=== PATIENT | female | born 1995 | race Caucasian/White ===

== ENCOUNTER 2017-03-23 07:36 | Emergency (ER) | payer SELFPAY ==
[~2017-03-23 07:36] MED LIST: NITROFURANTOIN MACROBID 100 MG CAP PO SCH
[2017-03-23 07:54] LABS: COLOR YELLOW; LEUKOCYTE ESTERASE,URINE 1+ (NEGATIVE); NITRITE,URINE NEGATIVE (NEGATIVE)
[2017-03-23 07:59] LABS: MUCUS TRACE /lpf (NONE-1+); RBC,URINE 50-182 /hpf (0-3); WBC,URINE 50-182 /hpf (0-3)
--- NOTE | 2017-03-23 08:21 | EDPHY ---
H & P Stated Complaint: pain with urination, frequency, incontinence and blood for 3 days Time Seen by Provider: 03/23/17 08:09 HPI/ROS: Chief Complaint: Urinary urgency and frequency HPI: 21-year-old female presenting with 2-3 days of increasing urinary urgency frequency or hematuria. Patient has also been incontinent of urine. Does not have a history of frequent UTIs in the past. No back pain. No abdominal pain. No nausea or vomiting. Denies . No fevers or chills. No abnormal vaginal discharge or bleeding. ROS: 10 point Review of Systems is negative except as noted in the HPI. PMH: Denies Social History: Positive smoking, occasional alcohol, no recreational drug use Family History: non-contributory Physical Exam: Gen: Awake, Alert, No Distress HEENT: Nose: no rhinorrhea Eyes: PERRLA, EOMI Mouth: Moist mucosa Neck: Supple, no JVD Chest: nontender, lungs clear to auscultation Heart: S1, S2 normal, no murmur Abd: Soft, non-tender, no guarding Back: no CVA tenderness, no midline tenderness Ext: no edema, non-tender Skin: no rash Neuro: CN II-XII intact, Sensation grossly intact, Strength 5/5 in bilateral upper and lower extremities - Personal History LMP (Females 10-55): 1-7 Days Ago Current Tetanus Diphtheria and Acellular Pertussis (TDAP): Yes - Medical/Surgical History Hx Asthma: No Hx Chronic Respiratory Disease: No Hx Diabetes: No Hx Cardiac Disease: No Hx Renal Disease: No Hx Cirrhosis: No Hx Alcoholism: No Hx HIV/AIDS: No Hx Splenectomy or Spleen Trauma: No Other PMH: irregular heart beat. - Social History Smoking Status: Heavy smoker Constitutional: Initial Vital Signs Temperature (C) 36.4 C 03/23/17 07:37 Heart Rate 103 H 03/23/17 07:37 Respiratory Rate 20 03/23/17 07:37 Blood Pressure 125/102 H 03/23/17 07:37 O2 Sat (%) 100 03/23/17 07:37 O2 Delivery Mode Room Air Allergies/Adverse Reactions: No Known Allergies Allergy (Unverified 03/23/17 07:43) Home Medications: Medication Instructions Recorded Nitrofurantoin Monohyd/M-Cryst 100 mg PO BID #10 capsule 03/23/17 [Macrobid 100 mg Capsule] Phenazopyridine HCl [Pyridium] 200 mg PO TID #6 tab 03/23/17 Medical Decision Making ED Course/Re-evaluation: Urinalysis consistent with UTI. Will start her on nitrofurantoin and Pyridium. Follow up with referral to [facility] for outpatient follow-up. - Data Points Laboratory Results: 03/23/17 07:45 Urine Color YELLOW Urine Appearance MODERATELY TURBID Urine pH 5.0 (5.0-7.5) Ur Specific Jackson 1.014 (1.002-1.030) Urine Protein 2+ H (NEGATIVE) Urine Ketones NEGATIVE (NEGATIVE) Urine Blood 3+ H (NEGATIVE) Urine Nitrate NEGATIVE (NEGATIVE) Urine Bilirubin NEGATIVE (NEGATIVE) Urine Urobilinogen NEGATIVE EU EU (0.2-1.0) Ur Leukocyte Esterase 1+ H (NEGATIVE) Urine RBC 50-182 /hpf H /hpf (0-3) Urine WBC 50-182 /hpf H /hpf (0-3) Ur Epithelial Cells 1+ /lpf /lpf (NONE-1+) Urine Mucus TRACE /lpf /lpf (NONE-1+) Urine Glucose 1+ H (NEGATIVE) Departure - Departure Disposition: Home, Routine, Self-Care Clinical Impression: Urinary tract infection Condition: Good Instructions: Urinary Tract Infection in Women (ED) Additional Instructions: Follow up with the [facility] in 4-5 days if symptoms are not improving. Return to the emergency depart for increasing pain, nausea, vomiting, fevers, chills, or any other concerns. Please take your full course of antibiotics. You may take the Pyridium as needed for urinary pain. Referrals: [facility],. [Clinic] - As per Instructions Prescriptions: Nitrofurantoin Monohyd/M-Cryst [Macrobid 100 mg Capsule] 100 mg PO BID #10 capsule Phenazopyridine HCl [Pyridium] 200 mg PO TID #6 tab
[2017-03-23 08:27] VITALS: BP 131/83; PULSE 100; RESP 18; TEMP 98.2; O2SAT 97
--- NOTE | 2017-03-23 09:24 | ASMTCMCOM ---
CM Note CM Note Notes: Macrobid "Mapped" through pharmacy. Patient stated that she could not pay for her medication upon D/C Date Signed: 03/23/2017 09:24 AM Electronically Signed By:Nelsy Napier
== END 2017-03-23 10:13 | disposition home or self-care (01) ==
DX: N39.0 Urinary tract infection, site not specified (principal); F17.200 Nicotine dependence, unspecified, uncomplicated